=== PATIENT | female | born 1945 | race Caucasian/White ===

== ENCOUNTER 2019-02-12 16:30 | Inpatient (IN) | payer MEDICARE, MEDICAID ==
[~2019-02-12] VITALS: Ht 154.9 cm; Wt 41.4 kg
[2019-02-12] MEDS ORDERED: normal saline 1000ML IV soln IV ONE (20:15)
[2019-02-12] MEDS ORDERED: normal saline 1000ml 2,000 ML IV ONE (20:20)
[2019-02-12 21:02] LABS: BASOPHILS # (AUTO) 0.1 X10'3 (0-0.2); BASOPHILS % (AUTO) 1.1 % (0-1); EOSINOPHILS % (AUTO) 0 % (0-6); HEMATOCRIT 40.3 % (35.0-45.0); HEMOGLOBIN 13.6 g/dl (12.0-16.0); LYMPHOCYTES # (AUTO) 1.4 X10'3 (1.1-4.8); LYMPHOCYTES % (AUTO) 24.7 % (21-51); MEAN CORPUSCULAR HEMOGLOBIN 35.6 PG (27.0-31.0); MEAN CORPUSCULAR HGB CONC 33.8 g/dL (33.0-36.5); MEAN CORPUSCULAR VOLUME 105.4 FL (78-98); MEAN PLATELET VOLUME 8.6 FL (7.4-10.4); MONOCYTES # (AUTO) 0.8 X10'3 (0-0.9); MONOCYTES % (AUTO) 13.2 % (2-12); NEUTROPHILS # (AUTO) 3.5 X10'3 (1.8-7.7); PLATELET COUNT 161 X10'3 (140-440); RED BLOOD COUNT 3.83 X10'6 (4.20-5.60); RED CELL DISTRIBUTION WIDTH 14.9 % (11.5-14.5); WHITE BLOOD COUNT 5.8 X10'3 (4.5-11.0)
[2019-02-12 21:07] LABS: CLARITY,URINE SLIGHTLY CLOUDY (Clear); COLOR,URINE YELLOW (Yellow); GLUCOSE, URINE NEGATIVE (Neg); KETONES,URINE TRACE mg/dl (Neg); LEUKOCYTE ESTERASE ,URINE NEGATIVE (Neg); NITRITES, URINE NEGATIVE (Neg); OCCULT BLOOD,URINE NEGATIVE (Neg); PROTEIN,URINE 30 mg/dl (Neg); UROBILINOGEN,URINE 0.2 E.U/dL (0.2-1.0)
[2019-02-12 21:13] LABS: UA COLLECTION TYPE STRAIGHT CATH
[2019-02-12 21:15] LABS: BACTERIA,URINE FEW /HPF (Neg); MUCUS STRANDS MANY /LPF (Neg); RBC,URINE 0-2 /HPF (0-2); SQUAMOUS EPITHELIAL CELL,UR FEW /LPF (FEW)
[2019-02-12 21:17] LABS: INR 1.1 INR; PARTIAL THROMBOPLASTIN TIME 36 SECONDS (22-32); PROTHROMBIN TIME 10.7 SECONDS (9.0-12.0)
[2019-02-12 21:18] LABS: ALANINE AMINOTRANSFERASE 21 U/L (12-78); ALBUMIN 2.2 G/DL (3.4-5.0); ALBUMIN/GLOBULIN RATIO 0.4 (1.1-1.5); ALKALINE PHOSPHATASE 85 IU/L (46-116); ANION GAP 5 (8-16); ASPARTATE AMINO TRANSFERASE 20 U/L (10-37); BILIRUBIN,TOTAL 0.3 MG/DL (0.1-1.0); BLOOD UREA NITROGEN 27 MG/DL (7-18); BUN/CREATININE RATIO 30.7 (6.6-38.0); CALCIUM 11.1 MG/DL (8.5-10.1); CHLORIDE 107 MMOL/L (99-107); CREATININE 0.88 MG/DL (0.40-0.90); GLUCOSE 102 MG/DL (70-104); POTASSIUM 4.9 MMOL/L (3.5-5.1); SODIUM 143 MMOL/L (135-145); TOTAL CARBON DIOXIDE 31.1 MMOL/L (24-32); TOTAL PROTEIN 7.9 G/DL (6.4-8.2); eGFR 63 ML/MIN
--- NOTE | 2019-02-12 21:21 | NUR ---
piv placed, labs drawn including bcx and lactic. current vss. receiving 1 liter infusion at 500 ml hr. caregiver, chastity elliott at bedside.
[2019-02-12 21:22] LABS: MAGNESIUM 2.2 MG/DL (1.5-2.4)
[2019-02-12 21:31] LABS: TOTAL CELLS COUNTED 100
[2019-02-12 21:32] LABS: PLATELET ESTIMATE NORMAL
[2019-02-12 21:36] LABS: TROPONIN I 0.98 NG/ML (0.0-0.05)
[2019-02-12] MEDS ORDERED: heparin 25,000 UNIT/250ml bag 250 ML IV SCH (21:40)
[2019-02-12] MEDS ORDERED: aspirin 325mg tablet PO ONE (21:40)
[2019-02-12] MEDS ORDERED: heparin 10,000 units/1 ML INJ IV ONE ×2 (21:40→21:50)
[2019-02-12] MEDS ORDERED: heparin 10,000 units/1 ML INJ IV PRN (21:40)
[2019-02-12] MEDS ORDERED: CefTRIAXone 2gm/D5W 50ml 50 ML IV ONE (21:45)
[2019-02-12] MEDS ORDERED: normal saline 1000ML IV soln IVB ONE (21:45)
[2019-02-12] MEDS ORDERED: LORA-269 PO (21:50)
[2019-02-12] MEDS ORDERED: MULT-933 PO (21:53)
[2019-02-12] MEDS ORDERED: SIMV20TA PO (21:53)
[2019-02-12] MEDS ORDERED: LEVO125T8 PO (21:53)
[2019-02-12] MEDS ORDERED: DIVA125T2 PO (21:53)
[2019-02-12] MEDS ORDERED: LORA10TA7 PO (21:53)
[2019-02-12] MEDS ORDERED: DONE10TA44 PO (21:53)
[2019-02-12] MEDS ORDERED: HYDR-3965 PO (22:17)
[2019-02-12] MEDS ORDERED: ACET-2119 PO (22:19)
--- NOTE | 2019-02-12 23:03 | NUR ---
HEPARIN GTT STARTED, 2 HR LACTIC DRAWN, ROCEFIN STARTED. CAREGIVER, GIUSEPPE, JUST LEFT.
[2019-02-12] MEDS ORDERED: azithromycin/NS 500mg/250ml 250 ML IV ONE (23:05)
--- NOTE | 2019-02-12 23:10 | NUR ---
relieving RN for lunch, pt is resting quietly on gurney, resp even and unlabored, took pill with yogurt, no choking,
[2019-02-13] VITALS (21 sets, daily range): BP systolic 79–120; BP diastolic 47–71
[2019-02-13] MEDS ORDERED: vancomycin/NS 1 GM ADD-VANTAGE 250 ML IV ONE
[2019-02-13] MEDS ORDERED: potassium Cl 40MEQ/NS 500ml 500 ML IV PRN ×2
[2019-02-13] MEDS ORDERED: potassium Cl 20 mEq SR tablet PO PRN ×2
[2019-02-13] MEDS ORDERED: magnesium 4gm in 100ml NS 100 ML IV PRN
[2019-02-13] MEDS ORDERED: ondansetron/PF 4mg/2ml inj IV PRN
[2019-02-13] MEDS ORDERED: acetaminophen 650mg rectal suppository RC PRN
[2019-02-13] MEDS ORDERED: morphine 4 MG/ML inj SYRINge IV PRN ×2
[2019-02-13] MEDS ORDERED: bisacodyl 10mg suppository rectal RC PRN
[2019-02-13] MEDS ORDERED: magnesium 2GM in 50ml NS 50 ML IV PRN
[2019-02-13] MEDS ORDERED: LORazepam 2 mg/ml vial IV ONE ×2 (00:15→00:20)
--- NOTE | 2019-02-13 00:17 | NUR ---
bp 88/[address] rico at bedside for reevaluation. he report pt will need central line and to be transferred to icu. he has contacted nicholas lauren already.
[2019-02-13] MEDS ORDERED: NORepinephrine 8mg/ 250ml NS 250 ML IV PRN (00:20)
[2019-02-13] MEDS: normal saline 1000ml 1,000 ML IV SCH ×3 (00:29→12:26)
[2019-02-13] MEDS ORDERED: ketamine 10mg/ml 20ml inj IV ONE (00:45)
--- NOTE | 2019-02-13 01:17 | NUR ---
central line , 4 luman, placed to right femoral vein by dr. rico. dr. art at bedside and updated of pt's upgrade to icu. mindi lauren now at bedside. orders to start levophed at 3 mcg/min.
[2019-02-13] MEDS: NORepinephrine 8mg/ 250ml NS 250 ML IV SCH (01:23)
[2019-02-13] MEDS ORDERED: vancomycin inj 500 MG in normal saline 100ml IV soln 100 ML IV ONE (03:55)
[2019-02-13 04:15] LABS: OXYGEN SATURATION (MIXED VEN) 56.7 % (60-80); PO2 MIXED VENOUS (TEMP COR) 30.7 mmHg (35-46)
[2019-02-13 04:46] LABS: BASOPHILS # (AUTO) 0.1 X10'3 (0-0.2); BASOPHILS % (AUTO) 0.8 % (0-1); EOSINOPHILS % (AUTO) 0 % (0-6); HEMATOCRIT 32.4 % (35.0-45.0); HEMOGLOBIN 10.8 g/dl (12.0-16.0); LYMPHOCYTES # (AUTO) 1.7 X10'3 (1.1-4.8); LYMPHOCYTES % (AUTO) 26.9 % (21-51); MEAN CORPUSCULAR HEMOGLOBIN 35.3 PG (27.0-31.0); MEAN CORPUSCULAR HGB CONC 33.3 g/dL (33.0-36.5); MEAN PLATELET VOLUME 8.5 FL (7.4-10.4); MONOCYTES # (AUTO) 0.8 X10'3 (0-0.9); MONOCYTES % (AUTO) 12.9 % (2-12); NEUTROPHILS # (AUTO) 3.8 X10'3 (1.8-7.7); NEUTROPHILS % (AUTO) 59.4 % (42-75); PLATELET COUNT 141 X10'3 (140-440); RED BLOOD COUNT 3.05 X10'6 (4.20-5.60); RED CELL DISTRIBUTION WIDTH 14.5 % (11.5-14.5); WHITE BLOOD COUNT 6.3 X10'3 (4.5-11.0)
[2019-02-13 05:07] LABS: ALANINE AMINOTRANSFERASE 15 U/L (12-78); ALBUMIN 1.8 G/DL (3.4-5.0); ALBUMIN/GLOBULIN RATIO 0.4 (1.1-1.5); ALKALINE PHOSPHATASE 67 IU/L (46-116); ANION GAP 7 (8-16); ASPARTATE AMINO TRANSFERASE 17 U/L (10-37); BILIRUBIN,TOTAL 0.2 MG/DL (0.1-1.0); BLOOD UREA NITROGEN 21 MG/DL (7-18); BUN/CREATININE RATIO 34.4 (6.6-38.0); CALCIUM 9.4 MG/DL (8.5-10.1); CHLORIDE 111 MMOL/L (99-107); CREATININE 0.61 MG/DL (0.40-0.90); GLUCOSE 107 MG/DL (70-104); MAGNESIUM 1.8 MG/DL (1.5-2.4); POTASSIUM 3.9 MMOL/L (3.5-5.1); SODIUM 144 MMOL/L (135-145); TOTAL CARBON DIOXIDE 26.4 MMOL/L (24-32); TOTAL PROTEIN 6.3 G/DL (6.4-8.2); TROPONIN I 0.48 NG/ML (0.0-0.05); eGFR > 90 ML/MIN
[2019-02-13 06:13] LABS: TOTAL CELLS COUNTED 100
[2019-02-13 06:14] LABS: PLATELET ESTIMATE NORMAL; POLYCHROMASIA 1+; TOXIC GRANULATION 1+
--- NOTE | 2019-02-13 06:30 | NUR ---
Patient in room ICU 2040. I have received report from patt and had the opportunity to ask questions and assume patient care.
[2019-02-13] MEDS: enoxaparin 40mg/0.4ml syringe SQ SCH ×2 (08:00→20:12)
[2019-02-13] MEDS: K and/or MAG REPLACEMENT MC SCH (08:00)
[2019-02-13] MEDS: cefepime 2g/NS 100ml ADVANTAGE 100 ML IV SCH ×2 (08:13→20:11)
[2019-02-13] MEDS: levoTHYROXINE 125mcg tablet PO SCH (08:13)
[2019-02-13] MEDS: multivitamins, therapeutics tablet PO SCH (08:13)
[2019-02-13] MEDS: loratadine 10mg tablet PO SCH (08:13)
[2019-02-13] MEDS: LORazepam 0.5 MG tablet PO SCH ×2 (08:13→20:11)
[2019-02-13] MEDS: divalproex sod 125mg tablet.DR PO SCH ×2 (08:19→20:11)
--- NOTE | 2019-02-13 09:00 | NUR ---
pt sleeping. able to slowly decrease levophed which is at 2mcg. speech therapy in- able to tolerate pureed, nectar thick foods using spoon, not straw. pt able to swallow meds- some crushed with applesauce. pt opens eyes, yells with care ie mrsa swab, only word that is understood is"no" attempted to reassre pt. open area rt buttock- dark- scant blood on foam drsg.
--- NOTE | 2019-02-13 09:30 | NUR ---
os sat decreasing- 2lnc placed in mouth after new probe applied. sbp down- levo off to 3mcg. uo minimal 20 to 30 cc/hr.
--- NOTE | 2019-02-13 10:16 | NUR ---
update to md- heparin gtt stopped, will continue lovenox
[2019-02-13] MEDS ORDERED: normal saline 1000ml 1,000 ML IVB ONE (15:09)
[2019-02-13] MEDS ORDERED: morphine 2 MG/ML inj. syringe IV PRN ×2 (15:10)
--- NOTE | 2019-02-13 16:00 | NUR ---
welcome home admin here- updated nursing. update to md asif continued decreased uo-1 liter ns given and rate to 150cc/hr
--- NOTE | 2019-02-13 18:30 | NUR ---
Patient in room ICU 2040. I have received report from Amelia HERRERA and had the opportunity to ask questions and assume patient care.
--- NOTE | 2019-02-13 18:34 | NUR ---
Malnutrition consult. Patient admitted from [facility] by caregiver. She is non verbal, history of developmental delay, down's syndrome. Per ED documentation the caregiver reports the patient has been eating very fast for several days however lost appetite prior to admission. Normally eats well however has recent difficulty swallowing. Per MD note patient has sepsis from urinary source and possible pneumonia. BSS done this morning, CHAPLAINCY recommends pureed food and nectar thick liquids, needing a feeder. No weight history is available, current weight is 99 lbs, 94% of IBW. Does appear to have muscle and fat wasting. Poor appetite today, eating 0-25% of meals. Recommend adding nectar thick liquid protein supplement shake with magic cup and nectar thick milk, d/w dietary. Recommend: 1. continue pureed food, nectar thick liquids per CHAPLAINCY 2. send thick shakes with meals using magic cup 3. Weight per rx Addendum: 02/13/19 at [address] Amended: Links added.
--- NOTE | 2019-02-13 19:11 | NUR ---
able to stop levo for now and uo increased slightly. pt opening eyes more- able to take thickened juice with spoon by nurse.
[2019-02-13] MEDS: donepezil 5mg tablet PO SCH (20:11)
[2019-02-13] MEDS: atorvastatin 10mg tablet PO SCH (20:11)
[2019-02-13] MEDS: lactobacillus rhamnosus 10,000 MMU CELLS/CAPSULE PO SCH (20:11)
[2019-02-14] VITALS (24 sets, daily range): BP systolic 92–123; BP diastolic 48–73
--- NOTE | 2019-02-14 02:05 | NUR ---
Patient has been yelling out for most of the shift. When patient is moved for turning or any personal care, patient yells "OW" and face grimmaces. During bath patient pulled out carrera cath with her toes and has been reaching for femoral line and pulling at IV. Will continue to monitor patient.
[2019-02-14] MEDS: normal saline 1000ml 1,000 ML IV SCH (02:39)
[2019-02-14] MEDS ORDERED: vancomycin/NS 1 GM ADD-VANTAGE 250 ML IV SCH (03:00)
[2019-02-14 05:28] LABS: GLUCOSE 89 MG/DL (70-104)
[2019-02-14 05:29] LABS: ALANINE AMINOTRANSFERASE 14 U/L (12-78); ALBUMIN 1.7 G/DL (3.4-5.0); ALBUMIN/GLOBULIN RATIO 0.4 (1.1-1.5); ALKALINE PHOSPHATASE 54 IU/L (46-116); ANION GAP 6 (8-16); ASPARTATE AMINO TRANSFERASE 15 U/L (10-37); BILIRUBIN,TOTAL 0.3 MG/DL (0.1-1.0); BLOOD UREA NITROGEN 10 MG/DL (7-18); BUN/CREATININE RATIO 18.9 (6.6-38.0); CALCIUM 8.3 MG/DL (8.5-10.1); CHLORIDE 115 MMOL/L (99-107); CREATININE 0.53 MG/DL (0.40-0.90); MAGNESIUM 1.6 MG/DL (1.5-2.4); POTASSIUM 3.3 MMOL/L (3.5-5.1); SODIUM 146 MMOL/L (135-145); TOTAL CARBON DIOXIDE 25.5 MMOL/L (24-32); TOTAL PROTEIN 5.6 G/DL (6.4-8.2); eGFR > 90 ML/MIN
[2019-02-14 05:36] LABS: BASOPHILS # (AUTO) 0.1 X10'3 (0-0.2); BASOPHILS % (AUTO) 1.9 % (0-1); EOSINOPHILS % (AUTO) 0 % (0-6); HEMATOCRIT 29.2 % (35.0-45.0); LYMPHOCYTES # (AUTO) 1.4 X10'3 (1.1-4.8); LYMPHOCYTES % (AUTO) 37.7 % (21-51); MEAN CORPUSCULAR HEMOGLOBIN 36.1 PG (27.0-31.0); MEAN CORPUSCULAR HGB CONC 34.1 g/dL (33.0-36.5); MEAN CORPUSCULAR VOLUME 105.8 FL (78-98); MEAN PLATELET VOLUME 9.3 FL (7.4-10.4); MONOCYTES # (AUTO) 0.7 X10'3 (0-0.9); MONOCYTES % (AUTO) 18.3 % (2-12); NEUTROPHILS # (AUTO) 1.6 X10'3 (1.8-7.7); NEUTROPHILS % (AUTO) 42.1 % (42-75); PLATELET COUNT 114 X10'3 (140-440); RED BLOOD COUNT 2.76 X10'6 (4.20-5.60); RED CELL DISTRIBUTION WIDTH 14.5 % (11.5-14.5); WHITE BLOOD COUNT 3.7 X10'3 (4.5-11.0)
--- NOTE | 2019-02-14 06:30 | NUR ---
Patient in room ICU 2040. I have received report from jayjay and had the opportunity to ask questions and assume patient care.
[2019-02-14] MEDS ORDERED: potassium Cl 40MEQ/250ML bag 250 ML IV PRN (06:35)
[2019-02-14] MEDS: K and/or MAG REPLACEMENT MC SCH (08:00)
[2019-02-14] MEDS: potassium Cl 40MEQ/250ML bag 250 ML IV PRN (08:43)
[2019-02-14] MEDS: cefepime 2g/NS 100ml ADVANTAGE 100 ML IV SCH (08:43)
[2019-02-14] MEDS: lactobacillus rhamnosus 10,000 MMU CELLS/CAPSULE PO SCH ×2 (08:44→20:32)
[2019-02-14] MEDS: levoTHYROXINE 125mcg tablet PO SCH (08:44)
[2019-02-14] MEDS: LORazepam 0.5 MG tablet PO SCH ×2 (08:44→20:32)
[2019-02-14] MEDS: loratadine 10mg tablet PO SCH (08:46)
[2019-02-14] MEDS: divalproex sod 125mg tablet.DR PO SCH ×2 (08:46→20:44)
[2019-02-14] MEDS: multivitamins, therapeutics tablet PO SCH (08:46)
[2019-02-14] MEDS: enoxaparin 40mg/0.4ml syringe SQ SCH ×2 (08:49→20:32)
--- NOTE | 2019-02-14 09:00 | NUR ---
pt more awake- more yelling out, then will sleep for short periods. often saying "no" "no" small amounts of breakfast taken vss, bradycardia.
--- NOTE | 2019-02-14 16:30 | NUR ---
fc dcd per orders/ ivf changed r/t inc na.
[2019-02-14] MEDS: Potassium Cl inj 40 MEQ in dextrose 5%-water 980 ML IV SCH ×2 (16:35→23:10)
--- NOTE | 2019-02-14 18:30 | NUR ---
Patient in room ICU 2040. I have received report from Amelia HERRERA and had the opportunity to ask questions and assume patient care.
[2019-02-14] MEDS ORDERED: levoFLOXACIN-Levaquin 500mg/D5 100 ML IV SCH (20:00)
[2019-02-14] MEDS: donepezil 5mg tablet PO SCH (20:32)
[2019-02-14] MEDS: atorvastatin 10mg tablet PO SCH (20:32)
[2019-02-14] MEDS ORDERED: levoFLOXACIN-Levaquin 500mg/D5 100 ML IV ONE (20:35)
[2019-02-15] VITALS (21 sets, daily range): BP systolic 89–131; BP diastolic 51–83
[2019-02-15] MEDS: NORepinephrine 8mg/ 250ml NS 250 ML IV SCH (00:20)
--- NOTE | 2019-02-15 02:09 | NUR ---
Patient needed to be changed, when I began to change patient, patient yelled out "please don't hit me" multiple time. Tech in the room with me. Patient yelled 'NO' the rest of the time. Patient incontinent of stool and urine. Attempted to reassure patient that we were there to help her and would not hurt her.
[2019-02-15] MEDS: Potassium Cl inj 40 MEQ in dextrose 5%-water 980 ML IV SCH ×2 (02:47→17:16)
[2019-02-15 03:06] LABS: BASOPHILS # (AUTO) 0.1 X10'3 (0-0.2); BASOPHILS % (AUTO) 1.9 % (0-1); EOSINOPHILS % (AUTO) 0.2 % (0-6); HEMATOCRIT 30.4 % (35.0-45.0); HEMOGLOBIN 10.2 g/dl (12.0-16.0); LYMPHOCYTES # (AUTO) 1.7 X10'3 (1.1-4.8); MEAN CORPUSCULAR HEMOGLOBIN 35.4 PG (27.0-31.0); MEAN CORPUSCULAR HGB CONC 33.6 g/dL (33.0-36.5); MEAN CORPUSCULAR VOLUME 105.1 FL (78-98); MONOCYTES # (AUTO) 0.7 X10'3 (0-0.9); MONOCYTES % (AUTO) 18.5 % (2-12); NEUTROPHILS # (AUTO) 1.3 X10'3 (1.8-7.7); NEUTROPHILS % (AUTO) 34.4 % (42-75); PLATELET COUNT 134 X10'3 (140-440); RED BLOOD COUNT 2.89 X10'6 (4.20-5.60); RED CELL DISTRIBUTION WIDTH 14.3 % (11.5-14.5); WHITE BLOOD COUNT 3.8 X10'3 (4.5-11.0)
[2019-02-15 03:13] LABS: ALANINE AMINOTRANSFERASE 13 U/L (12-78); ALBUMIN 1.7 G/DL (3.4-5.0); ALBUMIN/GLOBULIN RATIO 0.4 (1.1-1.5); ALKALINE PHOSPHATASE 53 IU/L (46-116); ANION GAP 6 (8-16); ASPARTATE AMINO TRANSFERASE 16 U/L (10-37); BILIRUBIN,TOTAL 0.2 MG/DL (0.1-1.0); BLOOD UREA NITROGEN 5 MG/DL (7-18); BUN/CREATININE RATIO 9.1 (6.6-38.0); CALCIUM 8.1 MG/DL (8.5-10.1); CHLORIDE 109 MMOL/L (99-107); CREATININE 0.55 MG/DL (0.40-0.90); GLUCOSE 92 MG/DL (70-104); MAGNESIUM 1.5 MG/DL (1.5-2.4); POTASSIUM 3.3 MMOL/L (3.5-5.1); SODIUM 140 MMOL/L (135-145); TOTAL CARBON DIOXIDE 25.2 MMOL/L (24-32); TOTAL PROTEIN 5.8 G/DL (6.4-8.2); eGFR > 90 ML/MIN
--- NOTE | 2019-02-15 06:30 | NUR ---
Patient in room ICU 2040. I have received report from JAVIER Veloz and had the opportunity to ask questions and assume patient care.
[2019-02-15] MEDS: potassium Cl 40MEQ/250ML bag 250 ML IV PRN (07:31)
[2019-02-15 07:34] LABS: ANISOCYTOSIS 1+; PLATELET ESTIMATE DECREASED; POLYCHROMASIA FEW; TOTAL CELLS COUNTED 100
[2019-02-15] MEDS: K and/or MAG REPLACEMENT MC SCH (08:00)
[2019-02-15] MEDS: levoTHYROXINE 125mcg tablet PO SCH (08:23)
[2019-02-15] MEDS: loratadine 10mg tablet PO SCH (08:23)
[2019-02-15] MEDS: lactobacillus rhamnosus 10,000 MMU CELLS/CAPSULE PO SCH ×2 (08:24→20:53)
[2019-02-15] MEDS: divalproex sod 125mg tablet.DR PO SCH ×2 (08:24→20:56)
[2019-02-15] MEDS: multivitamins, therapeutics tablet PO SCH (08:24)
[2019-02-15] MEDS: enoxaparin 40mg/0.4ml syringe SQ SCH ×2 (08:24→20:57)
[2019-02-15] MEDS: LORazepam 0.5 MG tablet PO SCH ×2 (08:26→20:53)
--- NOTE | 2019-02-15 10:00 | NUR ---
Dr Marshall at bedside, states okay to transfer to any step down floor that has bed available, no tele needed. charge nurse at bedside to hear this statement also. cold storage supervisor made aware.
--- NOTE | 2019-02-15 18:28 | NUR ---
Problems reprioritized. Patient report given, questions answered & plan of care reviewed with JAVIER Boo.
--- NOTE | 2019-02-15 18:30 | NUR ---
Patient in room ICU 2040. I have received report from Tyesha HERRERA and had the opportunity to ask questions and assume patient care. 2LNC 93%, IV fluids infusing via CL, see interventions for more information. Will continue to monitor.
--- NOTE | 2019-02-15 19:30 | NUR ---
Attempted to call report to [facility], RN busy will call back.
--- NOTE | 2019-02-15 19:43 | NUR ---
Problems reprioritized. Patient report given, questions answered & plan of care reviewed with Little HERRERA. Pt to transfer to room 313 on [facility] unit.
[2019-02-15] MEDS ORDERED: levoFLOXACIN-Levaquin 500mg/D5 100 ML IV SCH (20:00)
--- NOTE | 2019-02-15 20:05 | NUR ---
Received report from ICU nurse, JAVIER Boo regarding transfer of patient to [facility] unit. I had the opportunity to have all questions answered.
--- NOTE | 2019-02-15 20:10 | NUR ---
Report called to receiving nurse. Transferred via slide board from bed to bed. Belongings in bag sent with patient. Patient stable on transfer of care. Special Issues communicated to receiving nurse.
--- NOTE | 2019-02-15 20:20 | NUR ---
Patient arrived to [facility] unit from ICU. Patient is Alert and Oriented x1. Patient is in stable condition to include stable vitals. All belongings arrived to the room 313. Assumed care of this patient and will continue to monitor this patient for the duration of this shift.
[2019-02-15] MEDS: atorvastatin 10mg tablet PO SCH (20:53)
[2019-02-15] MEDS: donepezil 5mg tablet PO SCH (20:53)
[2019-02-16] MEDS ORDERED: VANCOMYCIN LEVEL IV ONE (02:30)
[2019-02-16] MEDS: Potassium Cl inj 40 MEQ in dextrose 5%-water 980 ML IV SCH ×2 (05:10→15:10)
[2019-02-16 05:11] LABS: BASOPHILS # (AUTO) 0.1 X10'3 (0-0.2); BASOPHILS % (AUTO) 1.6 % (0-1); EOSINOPHILS % (AUTO) 0.1 % (0-6); HEMATOCRIT 33.4 % (35.0-45.0); HEMOGLOBIN 11.2 g/dl (12.0-16.0); LYMPHOCYTES # (AUTO) 1.6 X10'3 (1.1-4.8); LYMPHOCYTES % (AUTO) 34.4 % (21-51); MEAN CORPUSCULAR HEMOGLOBIN 35.2 PG (27.0-31.0); MEAN CORPUSCULAR HGB CONC 33.5 g/dL (33.0-36.5); MEAN PLATELET VOLUME 9.1 FL (7.4-10.4); MONOCYTES # (AUTO) 0.7 X10'3 (0-0.9); NEUTROPHILS # (AUTO) 2.3 X10'3 (1.8-7.7); NEUTROPHILS % (AUTO) 49.9 % (42-75); PLATELET COUNT 167 X10'3 (140-440); RED BLOOD COUNT 3.18 X10'6 (4.20-5.60); RED CELL DISTRIBUTION WIDTH 14.3 % (11.5-14.5); WHITE BLOOD COUNT 4.7 X10'3 (4.5-11.0)
[2019-02-16 05:17] LABS: ALANINE AMINOTRANSFERASE 16 U/L (12-78); ALBUMIN 1.8 G/DL (3.4-5.0); ALBUMIN/GLOBULIN RATIO 0.4 (1.1-1.5); ALKALINE PHOSPHATASE 76 IU/L (46-116); ANION GAP 4 (8-16); ASPARTATE AMINO TRANSFERASE 16 U/L (10-37); BILIRUBIN,TOTAL 0.2 MG/DL (0.1-1.0); BLOOD UREA NITROGEN 9 MG/DL (7-18); CHLORIDE 108 MMOL/L (99-107); GLUCOSE 87 MG/DL (70-104); MAGNESIUM 1.8 MG/DL (1.5-2.4); POTASSIUM 4.9 MMOL/L (3.5-5.1); SODIUM 142 MMOL/L (135-145); TOTAL CARBON DIOXIDE 29.8 MMOL/L (24-32); TOTAL PROTEIN 6.2 G/DL (6.4-8.2); eGFR > 90 ML/MIN
[2019-02-16 05:40] VITALS: BP 113/61
[2019-02-16 06:00] VITALS: BP_SYST 107; BP_SYST 189; BP_DIAS 70; BP_DIAS 90
--- NOTE | 2019-02-16 06:00 | NUR ---
Problems reprioritized. Patient report given, questions answered & plan of care reviewed with Art, RN.
[2019-02-16 06:42] LABS: ANISOCYTOSIS 1+; PLATELET ESTIMATE NORMAL; POLYCHROMASIA 1+; TOTAL CELLS COUNTED 100
[2019-02-16] MEDS: K and/or MAG REPLACEMENT MC SCH (08:00)
[2019-02-16] MEDS: loratadine 10mg tablet PO SCH (08:01)
[2019-02-16] MEDS: LORazepam 0.5 MG tablet PO SCH ×2 (08:01→21:09)
[2019-02-16] MEDS: multivitamins, therapeutics tablet PO SCH (08:02)
[2019-02-16] MEDS: lactobacillus rhamnosus 10,000 MMU CELLS/CAPSULE PO SCH ×2 (08:03→21:09)
[2019-02-16] MEDS: levoTHYROXINE 125mcg tablet PO SCH (08:03)
[2019-02-16] MEDS: enoxaparin 40mg/0.4ml syringe SQ SCH (08:04)
[2019-02-16] MEDS: divalproex sod 125mg tablet.DR PO SCH ×2 (08:32→21:09)
[2019-02-16] MEDS ORDERED: magnesium Cl slow-release 64mg tablet PO PRN (08:45)
[2019-02-16] MEDS ORDERED: potassium Cl 20 mEq SR tablet PO PRN ×2 (08:45)
[2019-02-16] MEDS ORDERED: potassium Cl 40MEQ/NS 500ml 500 ML IV PRN ×2 (08:45)
[2019-02-16] MEDS ORDERED: magnesium 4gm in 100ml NS 100 ML IV PRN (08:45)
[2019-02-16 11:00] VITALS: BP 122/73
--- NOTE | 2019-02-16 11:39 | NUR ---
reassessment: Pt PO 50% avg pureed/NTL meals but fluctuates w/ 0-25% milks. No documentation of thickened shake PO. Given pt wt likely still meeting nutrient needs. LBM 02/16; per RN BM this AM and has had at least one every day past few days. MCV 105 on MVI. Will continue to monitor for additional protein needs. Recommend: 1. continue pureed food, nectar thick liquids per [employer] 2. send thick shakes with meals using magic cup 3. Weight per rx Addendum: 02/16/19 at [address] Amended: Links added.
[2019-02-16 15:00] VITALS: BP 100/59
[2019-02-16 18:00] VITALS: BP 101/69
--- NOTE | 2019-02-16 18:10 | NUR ---
Patient in room MED 313. I have received report from Art and had the opportunity to ask questions and assume patient care.
[2019-02-16] MEDS: atorvastatin 10mg tablet PO SCH (21:09)
[2019-02-16] MEDS: donepezil 5mg tablet PO SCH (21:09)
[2019-02-16] MEDS: levoFLOXACIN 500mg tablet PO SCH (21:09)
[2019-02-16 22:00] VITALS: BP 101/61
[2019-02-17] MEDS: Potassium Cl inj 40 MEQ in dextrose 5%-water 980 ML IV SCH ×3 (01:10→20:52)
[2019-02-17 02:00] VITALS: BP 135/69
[2019-02-17 05:42] LABS: BASOPHILS # (AUTO) 0.1 X10'3 (0-0.2); BASOPHILS % (AUTO) 1.4 % (0-1); EOSINOPHILS % (AUTO) 0.1 % (0-6); HEMATOCRIT 33.3 % (35.0-45.0); HEMOGLOBIN 11.1 g/dl (12.0-16.0); LYMPHOCYTES # (AUTO) 1.8 X10'3 (1.1-4.8); LYMPHOCYTES % (AUTO) 37.8 % (21-51); MEAN CORPUSCULAR HEMOGLOBIN 35.2 PG (27.0-31.0); MEAN CORPUSCULAR HGB CONC 33.4 g/dL (33.0-36.5); MEAN CORPUSCULAR VOLUME 105.4 FL (78-98); MONOCYTES # (AUTO) 0.6 X10'3 (0-0.9); MONOCYTES % (AUTO) 11.8 % (2-12); NEUTROPHILS # (AUTO) 2.3 X10'3 (1.8-7.7); NEUTROPHILS % (AUTO) 48.9 % (42-75); PLATELET COUNT 199 X10'3 (140-440); RED BLOOD COUNT 3.16 X10'6 (4.20-5.60); RED CELL DISTRIBUTION WIDTH 14.4 % (11.5-14.5); WHITE BLOOD COUNT 4.7 X10'3 (4.5-11.0)
[2019-02-17 05:58] LABS: ALANINE AMINOTRANSFERASE 19 U/L (12-78); ALBUMIN/GLOBULIN RATIO 0.5 (1.1-1.5); ALKALINE PHOSPHATASE 62 IU/L (46-116); ANION GAP 4 (8-16); ASPARTATE AMINO TRANSFERASE 19 U/L (10-37); BILIRUBIN,TOTAL 0.1 MG/DL (0.1-1.0); BLOOD UREA NITROGEN 7 MG/DL (7-18); BUN/CREATININE RATIO 11.5 (6.6-38.0); CALCIUM 8.6 MG/DL (8.5-10.1); CHLORIDE 106 MMOL/L (99-107); CREATININE 0.61 MG/DL (0.40-0.90); GLUCOSE 88 MG/DL (70-104); MAGNESIUM 1.8 MG/DL (1.5-2.4); POTASSIUM 4.1 MMOL/L (3.5-5.1); SODIUM 142 MMOL/L (135-145); TOTAL PROTEIN 6.3 G/DL (6.4-8.2); eGFR > 90 ML/MIN
[2019-02-17 06:00] VITALS: BP 108/88
[2019-02-17 06:52] LABS: TOTAL CELLS COUNTED 100
[2019-02-17 06:53] LABS: PLATELET ESTIMATE NORMAL
[2019-02-17] MEDS: loratadine 10mg tablet PO SCH (07:29)
[2019-02-17] MEDS: LORazepam 0.5 MG tablet PO SCH ×2 (07:29→19:38)
[2019-02-17] MEDS: levoTHYROXINE 125mcg tablet PO SCH (07:29)
[2019-02-17] MEDS: divalproex sod 125mg tablet.DR PO SCH ×2 (07:29→20:51)
[2019-02-17] MEDS: lactobacillus rhamnosus 10,000 MMU CELLS/CAPSULE PO SCH ×2 (07:29→19:38)
[2019-02-17] MEDS: multivitamins, therapeutics tablet PO SCH (07:29)
[2019-02-17] MEDS: enoxaparin 40mg/0.4ml syringe SQ SCH (07:32)
[2019-02-17] MEDS: K and/or MAG REPLACEMENT MC SCH (08:00)
[2019-02-17 11:00] VITALS: BP 86/52
[2019-02-17 15:00] VITALS: BP 93/63
--- NOTE | 2019-02-17 17:15 | NUR ---
Problems reprioritized. Patient report given, questions answered & plan of care reviewed with JAVIER OGLESBY, ON NEURO.
--- NOTE | 2019-02-17 17:35 | NUR ---
PATIENT TRANSFERRED TO ROOM 4001
[2019-02-17] MEDS: levoFLOXACIN 500mg tablet PO SCH (19:38)
[2019-02-17] MEDS: donepezil 5mg tablet PO SCH (19:38)
[2019-02-17] MEDS: atorvastatin 10mg tablet PO SCH (19:38)
--- NOTE | 2019-02-17 19:58 | NUR ---
Patient in room ORTHO 4009. I have received report from JAVIER Alvarez and had the opportunity to ask questions and assume patient care. Addendum: 02/17/19 at 1959 by Aimee Arenas RN Amended: Links added.
[2019-02-17 21:00] VITALS: BP 95/54
[2019-02-18 05:00] VITALS: BP 107/70
[2019-02-18 06:00] VITALS: BP 113/73
--- NOTE | 2019-02-18 06:22 | NUR ---
Problems reprioritized. Patient report given, questions answered & plan of care reviewed with JAVIER Nava. Addendum: 02/18/19 at 0623 by Aimee Arenas RN Amended: Links added.
[2019-02-18] MEDS: lactobacillus rhamnosus 10,000 MMU CELLS/CAPSULE PO SCH (08:49)
[2019-02-18] MEDS: divalproex sod 125mg tablet.DR PO SCH (08:49)
[2019-02-18] MEDS: LORazepam 0.5 MG tablet PO SCH (08:49)
[2019-02-18] MEDS: multivitamins, therapeutics tablet PO SCH (08:49)
[2019-02-18] MEDS: loratadine 10mg tablet PO SCH (08:49)
[2019-02-18] MEDS: levoTHYROXINE 125mcg tablet PO SCH (08:49)
[2019-02-18] MEDS: enoxaparin 40mg/0.4ml syringe SQ SCH (08:50)
[2019-02-18] MEDS ORDERED: NITR0.4T48 SL (10:50)
[2019-02-18] MEDS ORDERED: LEVO750T21 PO (10:50)
[2019-02-18] MEDS ORDERED: LEVO75TA7 PO (10:50)
[2019-02-18] MEDS ORDERED: ASPI81TA52 PO (10:50)
--- NOTE | 2019-02-18 11:15 | NUR ---
Received discharge orders from Dr. Molina for pt to go home today. Pt lives at [facility]. Saline locks bilateral forearms discontinued with cannula intact. Applied bandaid with pressure after cannula removed. Pt tolerated well. Pt has wound on buttocks. Took photograph of wound and placed in chart. Applied Hydrophylic foam to buttocks. Pt incontinent of urine. 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 Pt dressed and placed in w/c for transport to [facility] parking lot. [facility] to private vehicle for discharge to home.
== END 2019-02-18 11:10 | disposition home health service (06) | DRG 871 ==
LOC: ER 16:31 → ED HOLD 02-13 03:05 → ICU 2S 02-13 03:33 → MED 3N 02-15 20:20 → ORTHO 4S 02-17 17:35
PROVIDERS: ADMIT Family Medicine; ATTEND Internal Medicine
PROC: 06HM33Z Insertion of Infusion Device into Right Femoral Vein, Percutaneous Approach (ICD-10-PCS; principal; 2019-02-12)
DX: A41.9 Sepsis, unspecified organism (principal); I21.A1 Myocardial infarction type 2; J18.1 Lobar pneumonia, unspecified organism; R65.21 Severe sepsis with septic shock; E43 Unspecified severe protein-calorie malnutrition; N39.0 Urinary tract infection, site not specified; Z68.1 Body mass index [BMI] 19.9 or less, adult; G31.9 Degenerative disease of nervous system, unspecified; E03.9 Hypothyroidism, unspecified; Q90.9 Down syndrome, unspecified; Z74.01 Bed confinement status; Z99.3 Dependence on wheelchair; Z88.0 Allergy status to penicillin; Z79.899 Other long term (current) drug therapy
CPT/HCPCS: 36415; 70110; 70450; 71045; 71250; 80053; 81001; 82810; 83605; 83735; 83880; 84132; 84145; 84443; 84484; 85025; 85610; 85730; 87040; 87070; 87088; 87502; 87503; 92508; 92616; 93005; 96365; 96366; 96368; 96375; 97110; 97162; 97530; 99291; G0378; J0456; J0692; J0696; J1644; J1650; J1956; J2060; J2270; J3370; J3480; J7030; J7070

== ENCOUNTER 2019-04-09 15:06 | Inpatient (IN) | payer MEDICARE, MEDICAID ==
[~2019-04-09] VITALS: Ht 157.5 cm; Wt 36.0 kg
[~2019-04-09 15:06] MED LIST: ACET-2119 PO; DIVA125T2 PO; DONE10TA44 PO; HYDR-3965 PO; LEVO75TA7 PO; LORA-269 PO; LORA10TA7 PO; MULT-933 PO; NITR0.4T48 SL; SIMV20TA PO
--- NOTE | 2019-04-09 16:13 | NUR ---
IV STARTED LABS DRAWN PROTOCAL ORDERED HEAD OF BED ELEVATED AT 90 DEGREES SIDE RAILS UP SUCTION AT BEDSIDE CLOSE. pT HAS HAD 2 EPISODES OF VOMITTING UPON ARRIVAL. VOMIT WITH SPUTUM AND MUCCOID . SUCTION USED TO KEP AIRWAY CLEAR. O2 SATS AT 94 ROOM AIR
--- NOTE | 2019-04-09 16:26 | NUR ---
PT HAD ANOTHER EPISODE OF MUCCOIDAL EMESIS . LABS NEED RE DRAWED, CHECST XRAY BEING DONE .
[2019-04-09] MEDS ORDERED: ondansetron/PF 4mg/2ml inj IV ONE (16:30)
--- NOTE | 2019-04-09 16:30 | NUR ---
HIPOLITO GALLARDO NOTIFIED OF PT EPISODES OF VOMITTING PER HOME STAFF WELL 3 EPISODES OF VOMITTING IN ED, VERBAL ORDER FOR 4 MG IV ZOFRAN NOW.
[2019-04-09 16:39] LABS: BASOPHILS # (AUTO) 0.1 X10'3 (0-0.2); EOSINOPHILS % (AUTO) 0 % (0-6); HEMATOCRIT 38.1 % (35.0-45.0); LYMPHOCYTES # (AUTO) 0.5 X10'3 (1.1-4.8); LYMPHOCYTES % (AUTO) 5.3 % (21-51); MEAN CORPUSCULAR HEMOGLOBIN 35.3 PG (27.0-31.0); MEAN CORPUSCULAR HGB CONC 34.2 g/dL (33.0-36.5); MEAN CORPUSCULAR VOLUME 103.3 FL (78-98); MEAN PLATELET VOLUME 7.5 FL (7.4-10.4); MONOCYTES # (AUTO) 0.4 X10'3 (0-0.9); NEUTROPHILS # (AUTO) 8.8 X10'3 (1.8-7.7); NEUTROPHILS % (AUTO) 89.7 % (42-75); PLATELET COUNT 152 X10'3 (140-440); RED BLOOD COUNT 3.68 X10'6 (4.20-5.60); RED CELL DISTRIBUTION WIDTH 14.9 % (11.5-14.5); WHITE BLOOD COUNT 9.8 X10'3 (4.5-11.0)
[2019-04-09 16:57] LABS: ALANINE AMINOTRANSFERASE 23 U/L (12-78); ALBUMIN 2.8 G/DL (3.4-5.0); ALBUMIN/GLOBULIN RATIO 0.6 (1.1-1.5); ALKALINE PHOSPHATASE 62 IU/L (46-116); ANION GAP 5 (8-16); ASPARTATE AMINO TRANSFERASE 16 U/L (10-37); BILIRUBIN,TOTAL 0.4 MG/DL (0.1-1.0); BLOOD UREA NITROGEN 22 MG/DL (7-18); CALCIUM 9.3 MG/DL (8.5-10.1); CHLORIDE 106 MMOL/L (99-107); CREATININE 0.71 MG/DL (0.40-0.90); GLUCOSE 138 MG/DL (70-104); LIPASE 81 U/L (73-393); POTASSIUM 4.3 MMOL/L (3.5-5.1); SODIUM 138 MMOL/L (135-145); TOTAL CARBON DIOXIDE 26.9 MMOL/L (24-32); TOTAL PROTEIN 7.7 G/DL (6.4-8.2); eGFR 81 ML/MIN
--- NOTE | 2019-04-09 17:22 | NUR ---
CHANGED PT DIAPER, CLEANED AND PLACED NEW DIAPER, STRAIGHT CATH URINE OBTAINED AND SENT TO LAB PER ORDERS.
[2019-04-09 17:32] LABS: CLARITY,URINE CLEAR (Clear); COLOR,URINE YELLOW (Yellow); GLUCOSE, URINE NEGATIVE (Neg); KETONES,URINE NEGATIVE (Neg); LEUKOCYTE ESTERASE ,URINE NEGATIVE (Neg); NITRITES, URINE NEGATIVE (Neg); OCCULT BLOOD,URINE NEGATIVE (Neg); PROTEIN,URINE NEGATIVE (Neg); UROBILINOGEN,URINE 0.2 E.U/dL (0.2-1.0)
[2019-04-09 17:49] LABS: UA COLLECTION TYPE STRAIGHT CATH
[2019-04-09] MEDS ORDERED: clindamycin 600mg/D5W 50ml 50 ML IV ONE (20:45)
[2019-04-09] MEDS ORDERED: ZINC57OI3 TOP (21:52)
[2019-04-09] MEDS ORDERED: LEVO125T PO (21:52)
[2019-04-09] MEDS ORDERED: CELE-193 PO (21:52)
[2019-04-10] MEDS ORDERED: acetaminophen 325mg tablet PO PRN (00:05)
[2019-04-10] MEDS ORDERED: magnesium hydroxide 30ml (MOM) UD suspension PO PRN (00:05)
[2019-04-10] MEDS ORDERED: mag hydrox/Alum hydrox/simeth 30ml oral suspension PO PRN (00:05)
[2019-04-10] MEDS ORDERED: ondansetron/PF 4mg/2ml inj IV PRN (00:05)
[2019-04-10] MEDS ORDERED: levoFLOXACIN-Levaquin 500mg/D5 100 ML IV SCH (00:08)
[2019-04-10] MEDS: normal saline 1000ml 1,000 ML IV SCH ×2 (00:54→10:01)
[2019-04-10 01:00] VITALS: BP 105/49
[2019-04-10] MEDS: clindamycin 300mg/D5W 50mL 50 ML IV SCH ×2 (02:22→07:55)
--- NOTE | 2019-04-10 06:28 | NUR ---
Problems reprioritized. Patient report given, questions answered & plan of care reviewed with Elissa HERRERA. Addendum: 04/10/19 at 0628 by Liss Chen RN Amended: Links added.
[2019-04-10 07:00] VITALS: BP 96/61
[2019-04-10] MEDS ORDERED: divalproex sod 125mg tablet.DR PO SCH (08:00)
[2019-04-10] MEDS ORDERED: LORazepam 0.5 MG tablet PO SCH (08:00)
[2019-04-10] MEDS ORDERED: levoTHYROXINE 125mcg tablet PO SCH (08:00)
[2019-04-10] MEDS ORDERED: heparin, porcine 5000 units/ml vial SQ SCH (08:00)
[2019-04-10] MEDS ORDERED: LEVO750T21 PO (11:26)
[2019-04-10 12:16] VITALS: BP 96/56
--- NOTE | 2019-04-10 14:38 | NUR ---
PT DISCHARGED IN STABLE CONDITION. LEFT FACILITY IN PRIVATE VEHICLE WITH TOOL AND DIE MACHINIST FROM "[facility]". IV DC CANULA INTACT. FOLLOW UP INSTRUCTIONS GIVEN, ALL QUESTIONS ANSWERED. Addendum: 04/10/19 at 1439 by Randa Reddy RN Amended: Links added.
[2019-04-10] MEDS ORDERED: donepezil 5mg tablet PO SCH (21:00)
== END 2019-04-10 14:40 | disposition home health service (06) | DRG 195 ==
LOC: ER 15:06 → SUR 3N 04-10 00:50
PROVIDERS: ADMIT Internal Medicine; ATTEND Internal Medicine
DX: J18.1 Lobar pneumonia, unspecified organism (principal); E03.9 Hypothyroidism, unspecified; E78.5 Hyperlipidemia, unspecified; K21.0 Gastro-esophageal reflux disease with esophagitis; F03.90 Unspecified dementia, unspecified severity, without behavioral disturbance, psychotic disturbance, mood disturbance, and anxiety; R59.1 Generalized enlarged lymph nodes; K80.20 Calculus of gallbladder without cholecystitis without obstruction; Q90.9 Down syndrome, unspecified; Z79.899 Other long term (current) drug therapy; Z88.0 Allergy status to penicillin
CPT/HCPCS: 36415; 71045; 71250; 74176; 80053; 81003; 83690; 85025; 85610; 87070; 96365; 96375; 99285; G0378; J1644; J1956; J2405; J3490; J7030; X5958